=== PATIENT | female | born 1955 | race Two or more races ===

== ENCOUNTER 2017-03-25 11:00 | Emergency (ER) | payer SELFPAY ==
[~2017-03-25] VITALS: Ht 157.5 cm; Wt 71.7 kg
[~2017-03-25 11:00] MED LIST: ALBUTEROL SULF8.5 GM INH; ASPIR 8181 MG ORAL; CEPHALEXIN500 MG ORAL; CIPROFLOXACIN500 M2 ORAL; COLACE100 MG ORAL; DIABETA5 MG ORAL; DIOVAN40 MG ORAL; GUAIFENESIN-CO118 M1 ORAL; IBUPROFEN600 MG ORAL; METFORMIN HCL500 M1 ORAL; NORCO 5-325 TA1 EACH ORAL; PRILOSEC10 MG ORAL; SIMVASTATIN5 MG ORAL; TESSALON PERLE100 M2 ORAL
[2017-03-25 11:37] LABS: APPEARANCE,URINE SLIGHTLY CLOUDY; GLUCOSE, URINE (UA) NEGATIVE (NEGATIVE); PROTEIN,URINE 3+ (NEGATIVE)
[2017-03-25 11:47] LABS: BILIRUBIN, URINE NEGATIVE (NEGATIVE); KETONES,URINE NEGATIVE (NEGATIVE); LEUKOCYTE ESTERASE ,URINE 1+ (NEGATIVE); NITRITE,URINE NEGATIVE (NEGATIVE); PH,URINE 5 (4.5-8.0); UROBILINOGEN,URINE NORMAL MG/DL (0.0-1.0)
[2017-03-25 11:49] LABS: COLOR,URINE BROWN
[2017-03-25 11:54] LABS: BASOPHILS % (AUTO) 0.6 % (0.0-2.0); HEMATOCRIT 40.6 % (37.0-47.0); HEMOGLOBIN 12.9 G/DL (12.0-16.0); MEAN CORPUSCULAR VOLUME 83 FL (80-99); NEUTROPHILS % (AUTO) 63.5 % (45.0-75.0); PLATELET COUNT 309 K/UL (150-450); RED CELL DISTRIBUTION WIDTH 13.4 % (11.6-14.8); WHITE BLOOD COUNT 8.8 K/UL (4.8-10.8)
[2017-03-25 12:14] LABS: ANION GAP 10 mmol/L (5-15); BLOOD UREA NITROGEN 21 mg/dL (7-18); CALCIUM 9.5 MG/DL (8.5-10.1); CARBON DIOXIDE 29 MMOL/L (21-32); CHLORIDE 102 MMOL/L (98-107); CREATININE 1.1 MG/DL (0.55-1.30); POTASSIUM 3.8 MMOL/L (3.5-5.1); SODIUM 141 MMOL/L (136-145)
[2017-03-25 12:19] LABS: ALANINE AMINOTRANSFERASE 23 U/L (12-78); ALKALINE PHOSPHATASE 60 U/L (46-116); ASPARTATE AMINO TRANSFERASE 19 U/L (15-37); BILIRUBIN,TOTAL 0.4 MG/DL (0.2-1.0)
[2017-03-25] MEDS ORDERED: CRESTOR20 MG ORAL (12:47)
[2017-03-25] MEDS ORDERED: LOSARTAN-HCTZ1 EACH ORAL (12:48)
[2017-03-25] MEDS ORDERED: NORVASC5 MG ORAL (12:48)
[2017-03-25] MEDS ORDERED: JANUVIA25 MG ORAL (12:48)
[2017-03-25] MEDS ORDERED: ZANTAC150 MG ORAL (12:48)
--- NOTE | 2017-03-25 13:05 | Emergency Room Report ---
History of Present Illness General Chief Complaint: Female Urogenital Problems Source: Patient Present Illness HPI 61-year-old female, presenting with right-sided flank pain, intermittently, also with hematuria today. No fever no chills. No nausea no vomiting. States it feels slightly similar to her kidney stones in the past No chest pain no shortness of breath Allergies: Coded Allergies: CIPROFLOXACIN (Unverified Allergy, Mild, 10/27/13) Nausea Patient History Past Medical History: see triage record Past Surgical History: none Pertinent Family History: none Last Menstrual Period: none Now: No Reviewed Nursing Documentation: PMH: Agreed, PSxH: Agreed Nursing Documentation-PMH Past Medical History: No History, Except For Hx Cardiac Problems: Yes - High cholesterol Hx Hypertension: Yes - high colesterol Hx Diabetes: Yes Hx Cancer: Yes - uterine/ovarian,on remmission Review of Systems All Other Systems: negative except mentioned in HPI Physical Exam Vital Signs Date Time Temp Pulse Resp B/P (MAP) Pulse Ox O2 Delivery O2 Flow Rate FiO2 03/25/17 11:06 98.8 97 18 119/76 96 Sp02 EP Interpretation: reviewed, normal General Appearance: normal inspection, well appearing, no apparent distress, alert, GCS 15, non-toxic Head: normocephalic, atraumatic Eyes: bilateral eye normal inspection, bilateral eye PERRL, bilateral eye EOMI ENT: normal ENT inspection, normal pharynx, normal voice, moist mucus membranes Neck: normal inspection, full range of motion, supple Respiratory: normal inspection, lungs clear, normal breath sounds, no respiratory distress, no retraction, no wheezing, speaking full sentences, chest symmetrical Cardiovascular #1: normal inspection, regular rate, rhythm, no edema, normal capillary refill Cardiovascular #2: 2+ radial (R), 2+ radial (L) Gastrointestinal: normal inspection, non tender, soft, non-distended, no guarding Musculoskeletal: normal inspection, back normal, normal range of motion, non- tender Neurologic: normal inspection, alert, oriented x3, responsive, motor strength/ tone normal, sensory intact, normal gait, speech normal Psychiatric: normal inspection, judgement/insight normal, memory normal Skin: normal inspection, normal color, no rash, warm/dry, well hydrated, normal turgor Medical Decision Making Diagnostic Impression: Primary Impression: Nephrolithiasis ER Course 61-year-old female with flank pain and hematuria DDX: Rule out UTI/pyelonephritis kidney stones Plan: Obtain labs, ua CT abdomen pelvis ER course: Patient has remained stable during ED stay. Has been ambulatory, nontoxic-appearing CT showing non obstructing stones dc home Disposition: Patient is to be discharged to home. Prescriptions given are flomax and Motrin Patient is instructed to follow up with their primary care doctor within 5 days. also fu with urology 1 week Strict return precautions discussed with patient such as fever, chills, worsening/severe pain, chest pain, SOB, nausea, vomiting, which may indicate severe illness. Patient verbalizes understanding and agrees with plan. Please note that this Emergency Department Report was dictated using [employer] representative technology software, occasionally this can lead to erroneous entry secondary to interpretation by the dictation equipment Laboratory Tests Test 03/25/17 11:15 03/25/17 11:40 Urine Color Brown Urine Appearance Slightly cloudy Urine pH 5 (4.5-8.0) Urine Specific [place] 1.025 (1.005-1.035) Urine Protein 3+ (NEGATIVE) H Urine Glucose (UA) Negative (NEGATIVE) Urine Ketones Negative (NEGATIVE) Urine Occult Blood 5+ (NEGATIVE) H Urine Nitrite Negative (NEGATIVE) Urine Bilirubin Negative (NEGATIVE) Urine Urobilinogen Normal MG/DL (0.0-1.0) Urine Leukocyte Esterase 1+ (NEGATIVE) H Urine RBC Tntc /HPF (0 - 2) H Urine WBC 5-10 /HPF (0 - 2) H Urine Squamous Epithelial Cells Few /LPF (NONE/OCC) Urine Bacteria Few /HPF (NONE) White Blood Count 8.8 K/UL (4.8-10.8) Red Blood Count 4.90 M/UL (4.20-5.40) Hemoglobin 12.9 G/DL (12.0-16.0) Hematocrit 40.6 % (37.0-47.0) Mean Corpuscular Volume 83 FL (80-99) Mean Corpuscular Hemoglobin 26.3 PG (27.0-31.0) L Mean Corpuscular Hemoglobin Concent 31.8 G/DL (32.0-36.0) L Red Cell Distribution Width 13.4 % (11.6-14.8) Platelet Count 309 K/UL (150-450) Mean Platelet Volume 7.8 FL (6.5-10.1) Neutrophils (%) (Auto) 63.5 % (45.0-75.0) Lymphocytes (%) (Auto) 29.0 % (20.0-45.0) Monocytes (%) (Auto) 6.0 % (1.0-10.0) Eosinophils (%) (Auto) 1.0 % (0.0-3.0) Basophils (%) (Auto) 0.6 % (0.0-2.0) Sodium Level 141 MMOL/L (136-145) Potassium Level 3.8 MMOL/L (3.5-5.1) Chloride Level 102 MMOL/L (98-107) Carbon Dioxide Level 29 MMOL/L (21-32) Anion Gap 10 mmol/L (5-15) Blood Urea Nitrogen 21 mg/dL (7-18) H Creatinine 1.1 MG/DL (0.55-1.30) Estimate Glomerular Filtration Rate 50.3 mL/min (>60) Glucose Level 147 MG/DL (74-106) H Calcium Level 9.5 MG/DL (8.5-10.1) Total Bilirubin 0.4 MG/DL (0.2-1.0) Aspartate Amino Transferase (AST) 19 U/L (15-37) Alanine Aminotransferase (ALT) 23 U/L (12-78) Alkaline Phosphatase 60 U/L (46-116) Total Protein 8.2 G/DL (6.4-8.2) Albumin 4.0 G/DL (3.4-5.0) Globulin 4.2 g/dL Albumin/Globulin Ratio 1.0 (1.0-2.7) CT/MRI/US Diagnostic Results CT/MRI/US Diagnostic Results : Imaging Test Ordered: CT abdo pelvis Impression Findings: Multiple retroperitoneal clips demonstrated adjacent to the aorta and IVC extending into the pelvis consistent with previous retroperitoneal dissection. Some calcification of the aorta noted consistent with metastatic disease. The appendix is not seen. There are no secondary signs of acute appendicitis. Gallstones are present. There is scarring in the left kidney. There is no hydronephrosis. There is a tiny nonobstructive stone 2 mm in size in the upper pole of the right kidney. Umbilical hernia containing fat demonstrated. There is also a second paraumbilical hernia just left of the umbilicus containing fat. Uterus is absent. Urinary bladder is mostly nondistended. No free fluid or free air identified. The lung bases are clear. IMPRESSION: Gallstones Nonobstructive stone in the upper pole right kidney. Scarring in the left kidney. Status post retroperitoneal dissection. Status post hysterectomy. Small anterior abdominal wall hernias containing fat as discussed above. Last Vital Signs Date Time Temp Pulse Resp B/P (MAP) Pulse Ox O2 Delivery O2 Flow Rate FiO2 03/25/17 11:06 98.8 97 18 119/76 96 Disposition: HOME, SELF-CARE Condition: Improved Scripts Acetaminophen* (TYLENOL EXTRA STRENGTH*) 500 Mg Tablet 500 MG ORAL Q8H Y for Prn Headache/Temp > 101, #30 TAB 0 Refills Prov: Barrera Castañeda M.D. 03/25/17 Tamsulosin HCl (Flomax) 0.4 Mg Cap.er.24h 0.4 MG ORAL DAILY for 7 Days, #7 CAP 0 Refills Prov: Barrera Castañeda M.D. 03/25/17 Referrals: NON PHYSICIAN (PCP) Barrera Castañeda M.D. Mar 25, 2017 13:05
[2017-03-25] MEDS ORDERED: TYLENOL EXTRA500 MG ORAL (13:07)
[2017-03-25] MEDS ORDERED: FLOMAX0.4 MG ORAL (13:07)
[2017-03-25 13:30] VITALS: BP 148/73
--- NOTE | 2017-03-25 13:35 | Diagnostic Imaging Report ---
Indication: Abdominal pain Technique: Continuous helical transaxial imaging of the abdomen and pelvis was obtained from the lung bases to the pubic symphysis. No intravenous contrast was administered. Coronal 2-D reformats were also obtained. Automatic Exposure Control was utilized. Total Dose length Product (DLP): 682.[address] Dose Index Volume (CTDIvol): 13.88 mGy Comparison: 08/05/2010 Findings: Multiple retroperitoneal clips demonstrated adjacent to the aorta and IVC extending into the pelvis consistent with previous retroperitoneal dissection. Some calcification of the aorta noted consistent with metastatic disease. The appendix is not seen. There are no secondary signs of acute appendicitis. Gallstones are present. There is scarring in the left kidney. There is no hydronephrosis. There is a tiny nonobstructive stone 2 mm in size in the upper pole of the right kidney. Umbilical hernia containing fat demonstrated. There is also a second paraumbilical hernia just left of the umbilicus containing fat. Uterus is absent. Urinary bladder is mostly nondistended. No free fluid or free air identified. The lung bases are clear. IMPRESSION: Gallstones Nonobstructive stone in the upper pole right kidney. Scarring in the left kidney. Status post retroperitoneal dissection. Status post hysterectomy. Small anterior abdominal wall hernias containing fat as discussed above. The CT scanner at [facility] is accredited by the [employer] and the scans are performed using dose optimization techniques as appropriate to a performed exam including Automatic Exposure control.
== END 2017-03-25 13:30 | disposition home or self-care (01) ==
LOC: EMR 12:34
DX: N20.0 Calculus of kidney (principal); K80.20 Calculus of gallbladder without cholecystitis without obstruction; Z90.710 Acquired absence of both cervix and uterus; K43.9 Ventral hernia without obstruction or gangrene; I10 Essential (primary) hypertension; E11.9 Type 2 diabetes mellitus without complications
CPT/HCPCS: 74176; 80053; 81001; 85025; 96360; 99284